=== PATIENT | male | born 1985 | race Caucasian/White ===

== ENCOUNTER 2019-03-18 17:31 | Emergency (ER) | payer OTHER ==
[2019-03-18] MEDS ORDERED: Acetaminophen/HYDROcodone 325-5 MG Tab PO ONE (18:09)
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
--- NOTE | 2019-03-19 05:57 | CR ---
Pelvis: AP view of the pelvis was obtained. Comparison: No previous study. Joint space with the left hip is preserved. Moderate narrowing is seen superiorly within the right hip. Sacroiliac joints are unremarkable. No acute fracture or other bony abnormality is seen. Small calcification off the superior left iliac wing is seen which is well corticated which I feel is incidental. Impression: 1. Superior joint space narrowing within the right hip. 2. Nothing acute is appreciated. Diagnostic code #2
== END 2019-03-18 19:44 | disposition home or self-care (01) ==
LOC: JD.ED 17:31
DX: S30.0XXA Contusion of lower back and pelvis, initial encounter (principal); V43.53XA Car driver injured in collision with pick-up truck in traffic accident, initial encounter
CPT/HCPCS: 72170; 72170-26; 99284-25; A9270-GY

== ENCOUNTER 2019-10-19 18:55 | Emergency (ER) | payer OTHER ==
[2019-10-19] MEDS ORDERED: Tetracaine HCl/PF 0.5% 4 ML Bottle EYEBOTH ONE (19:51)
[2019-10-19] MEDS ORDERED: Fluorescein 1 MG Ophth Strip EYEBOTH ONE (19:52)
[2019-10-19] MEDS ORDERED: Fluorescein 1 MG Ophth Strip ONE (19:58)
--- NOTE | 2019-10-19 20:18 | EDM.PDOC ---
ED HPI GENERAL MEDICAL PROBLEM - General Chief Complaint: ENT Problem Stated Complaint: eye problem Time Seen by Provider: 10/19/19 19:12 Source of Information: Reports: Patient History Limitations: Reports: No Limitations - History of Present Illness INITIAL COMMENTS - FREE TEXT/NARRATIVE: This is a 34-year-old male. He comes with severe eye irritation for the last 3 days. He was seen about 3 days ago for a acute conjunctivitis in the right eye and was placed on some Polytrim which is a combination of polymyxin B and trimethoprim. He states that when he put the drops in his eye it burned terribly and as he continued to use it over the last several days his eyes have steadily gotten worse and worse more red more drainage and more irritation and pain. He comes to the ER for evaluation. He has a history of cold sores but none in the last several years. No hx of shingles. He has no lesions on his scalp or face noted. He denies any other acute symptoms at this time. When he was using the Polytrim he was told to put it in both eyes even though the right eye was the only one that had the infection. Now both eyes look severely red and inflamed with the lids being swollen. Bilateral Eye Pain Score (Numeric/FACES): 2 - Related Data Allergies Allergy/AdvReac Type Severity Reaction Status Date / Time No Known Allergies Allergy Verified 10/19/19 19:12 Home Meds: Home Meds . [No Known Home Meds] 10/19/19 [History] Past Medical History - Past Health History Medical/Surgical History: Denies Medical/Surgical History - Past Surgical History HEENT Surgical History: Reports: Oral Surgery GI Surgical History: Reports: Appendectomy Musculoskeletal Surgical History: Reports: ORIF Social & Family History - Family History Family Medical History: Noncontributory - Tobacco Use Smoking Status *Q: Never Smoker Second Hand Smoke Exposure: No - Caffeine Use Caffeine Use: Reports: Coffee - Recreational Drug Use Recreational Drug Use: No - Living Situation & Occupation Living situation: Reports: , with Significant Other (Girlfriend), with Family (Son) 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) ED ROS ENT - Review of Systems Review Of Systems: See Below Constitutional: Denies: Fever, Chills HEENT: Reports: Eye Discharge, Eye Pain, Other (Your eye inflammation and mild lid swelling) Respiratory: Reports: No Symptoms Cardiovascular: Reports: No Symptoms Endocrine: Reports: No Symptoms GI/Abdominal: Denies: Nausea, Vomiting : Reports: No Symptoms Musculoskeletal: Reports: No Symptoms Skin: Reports: No Symptoms Neurological: Reports: No Symptoms Psychiatric: Reports: No Symptoms Hematologic/Lymphatic: Reports: No Symptoms ED EXAM, ENT - Physical Exam Exam: See Below Exam Limited By: No Limitations General Appearance: Alert, WD/WN, No Apparent Distress Eye Exam: Bilateral Eye: Other (Noted inflammation of the conjunctivae and severe swelling, the cornea actually appears to be fairly clear though there is a lot of eye watering and some mild discharge noted in both eyes.) Ears: Normal External Exam Nose: Normal Inspection Mouth/Throat: Normal Inspection Head: Normocephalic Neck: Supple Respiratory/Chest: No Respiratory Distress GI/Abdominal: Soft Back: Full Range of Motion Extremities: Normal Inspection, Normal Range of Motion Neurological: Alert, Oriented Psychiatric: Normal Affect, Normal Mood Skin: Warm, Dry Comments: Eyes were numbed with tetracaine, then with an ophthalmoscope I looked at the corneas in the anterior chambers and the pupils and they were both clear in both eyes. I then placed some fluorescein stain both eyes and very carefully looked at the corneas with an ophthalmoscope there are no obvious lesions or stellate lesions noted either cornea. However there is lots of inflammation of the conjunctiva of both eyes with some swelling of the lids noted. It looks more like an allergic reaction and actually looks like a an infection at this point. Course - Vital Signs Last Recorded V/S: Last Vital Signs Temp 98.4 F 10/19/19 19:07 Pulse 97 10/19/19 19:07 Resp 12 10/19/19 19:07 BP 153/93 H 10/19/19 19:07 Pulse Ox 96 10/19/19 19:07 - Orders/Labs/Meds Orders: Active Orders 24 hr Category Date Time Status Gentamicin [Garamycin 0.3% Ophth Soln] Med 10/19/19 21:00 Active 1 ml EYEBOTH TID prednisoLONE acetate [Pred Forte 1% Ophth Susp] Med 10/19/19 21:00 Active 1 ml EYEBOTH TID Medication Orders Gentamicin Sulfate (Garamycin 0.3% Ophth Soln) 1 ml EYEBOTH TID JUAN J Last Admin: 10/19/19 20:22 Dose: 1 ml Prednisolone Acetate (Pred Forte 1% Ophth Susp) 1 ml EYEBOTH TID JUAN J Last Admin: 10/19/19 20:23 Dose: 1 ml Meds: Medications Generic Name Dose Route Start Last Admin Trade Name Derrick PRN Reason Stop Dose Admin Gentamicin Sulfate 1 ml 10/19/19 21:00 10/19/19 20:22 Garamycin 0.3% Ophth Soln EYEBOTH 1 ml TID JUAN J Administration Prednisolone Acetate 1 ml 10/19/19 21:00 10/19/19 20:23 Pred Forte 1% Ophth Susp EYEBOTH 1 ml TID JUAN J Administration Discontinued Medications Generic Name Dose Route Start Last Admin Trade Name Derrick PRN Reason Stop Dose Admin Fluorescein Sodium 1 mg 10/19/19 19:52 10/19/19 20:04 Ful-Shanice EYEBOTH 10/19/19 19:53 1 mg ONETIME ONE Administration Fluorescein Sodium Confirm 10/19/19 19:58 10/19/19 20:18 Ful-Shanice Administered 10/19/19 19:59 Not Given Dose 1 mg .ROUTE .STK-MED ONE Tetracaine HCl 0.5 ml 10/19/19 19:51 10/19/19 20:03 Tetracaine 0.5% Steri-Unit Leticia EYEBOTH 10/19/19 19:52 0.5 ml ASDIRECTED ONE Administration - Re-Assessments/Exams Free Text/Narrative Re-Assessment/Exam: 10/19/19 20:19 And tolerated the examination of his eyes appropriately. There are no lesions on the cornea they are perfectly clear and symmetrical. I am going to put him on some prednisone forte and switch his antibiotic to Garamycin. I am going to suggest to use the prednisone forte faithfully for the next 4 to 5 days and use the Garamycin for the next 3 days. Departure - Departure Time of Disposition: 20:26 Disposition: Home, Self-Care 01 Condition: Fair Clinical Impression: Allergic eye reaction Acute conjunctivitis of both eyes Qualifiers: Acute conjunctivitis type: unspecified Qualified Code(s): H10.33 - Unspecified acute conjunctivitis, bilateral - Discharge Information *PRESCRIPTION DRUG MONITORING PROGRAM REVIEWED*: No *COPY OF PRESCRIPTION DRUG MONITORING REPORT IN PATIENT MILY: No Instructions: Bacterial Conjunctivitis, [id number] Referrals: PCP,None [Primary Care Provider] - Forms: ED Department Discharge Additional Instructions: Do not use the Polytrim drops any longer since I believe you are having an allergic reaction to them. Take the prednisone forte 1 drop each eye 4 times a day for at least 5 days or maybe longer if the inflammation persists. Use the Garamycin drops 1 drop 3 times a day for at least 5 days or maybe longer if the discharge continues. Sure you wash your hands thoroughly after wiping your eyes and if you wipe your hands on your pants or shirt or what ever make sure you wash it immediately or throw it away. We will call you at 7 PM to make sure things are improving and not getting worse. Sepsis Event Note - Evaluation Sepsis Screening Result: No Definite Risk - Focused Exam Vital Signs: Vital Signs Temp Pulse Resp BP Pulse Ox 10/19/19 19:07 98.4 F 97 12 153/93 H 96 Date Exam was Performed: 10/19/19 Time Exam was Performed: 20:26 - My Orders Last 24 Hours: My Active Orders 10/19/19 21:00 Gentamicin [Garamycin 0.3% Ophth Soln] 1 ml EYEBOTH TID prednisoLONE acetate [Pred Forte 1% Ophth Susp] 1 ml EYEBOTH TID - Assessment/Plan Last 24 Hours: My Active Orders 10/19/19 21:00 Gentamicin [Garamycin 0.3% Ophth Soln] 1 ml EYEBOTH TID prednisoLONE acetate [Pred Forte 1% Ophth Susp] 1 ml EYEBOTH TID
[2019-10-19] MEDS ORDERED: prednisoLONE Acetate 1% Ophth Susp 5 ML Bottle EYEBOTH SCH (21:00)
[2019-10-19] MEDS ORDERED: Gentamicin 0.3% Ophth Soln 5 ML Bottle EYEBOTH SCH (21:00)
== END 2019-10-19 20:25 | disposition home or self-care (01) ==
LOC: JD.ED 18:55
DX: H57.11 Ocular pain, right eye (principal); T49.5X5A Adverse effect of ophthalmological drugs and preparations, initial encounter; H10.33 Unspecified acute conjunctivitis, bilateral
CPT/HCPCS: 99283; A9270